=== PATIENT | female | born 1990 | race Two or more races ===

== ENCOUNTER 2018-12-08 05:00 | Emergency (ER) | payer MEDICAID ==
[~2018-12-08] VITALS: Ht 147.3 cm; Wt 77.1 kg
--- NOTE | 2018-12-08 05:28 | NUR ---
BIB SELF FROM HOME. AAOX4. NAD, BREATHING EVEN AND UNLABORED. AMBULATORY. C/O MULTIPLE RED, RAISE HIVES ON BLE SINCE SUNDAY. PT STATES THAT SHE HAS BEEN TO ER AND ON STEROIDS AND BENADRYL. HIVE STATED ON THE BODY WHICH IS NOT PRESENT AT THIS MOMENT AND STATES THAT IT MOVED DOWN TO HER LOWER EXTREMETIES. TO ER BED 1. MD AT BEDSIDE FOR EVAL. ORDERS RECEIVED.
[2018-12-08] MEDS ORDERED: diphenhydrAMINE HCL 50 MG CAPSULE PO ONE (05:30)
[2018-12-08] MEDS ORDERED: FAMOTIDINE (20 MG) 20 MG TABLET ONE (05:30)
[2018-12-08] MEDS ORDERED: FAMOTIDINE (20 MG) 20 MG TABLET PO ONE (05:30)
[2018-12-08] MEDS ORDERED: diphenhydrAMINE HCL 50 MG CAPSULE ONE (05:30)
[2018-12-08] MEDS ORDERED: predniSONE 20 MG TABLET PO ONE (05:30)
[2018-12-08] MEDS ORDERED: predniSONE 20 MG TABLET ONE (05:31)
[2018-12-08 05:48] VITALS: BP 123/74
--- NOTE | 2018-12-08 05:48 | NUR ---
Patient discharged to home in stable condition. Written and verbal after care instructions given. Patient verbalizes understanding of instruction. Pt ambulatory with a steady gait
== END 2018-12-08 05:49 | disposition home or self-care (01) ==
LOC: ER 05:00
DX: L50.9 Urticaria, unspecified (principal); Z98.890 Other specified postprocedural states; Z98.51 Tubal ligation status; Z90.89 Acquired absence of other organs
CPT/HCPCS: 99284; J7512; Q0163

== ENCOUNTER 2019-06-19 19:39 | Emergency (ER) | payer MEDICAID, OTHER ==
[~2019-06-19] VITALS: Ht 149.9 cm; Wt 81.6 kg
--- NOTE | 2019-06-19 20:07 | NUR ---
PT AMBULATED TO ER #4 WITH A STEADY GAIT. PT IS C/O A HEADACHE X 1 DAY AND IS EXPERIENCING PHOTOPHOBIA. 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 OVERHEAD LIGHTS HAVE BEEN TURNED OFF AND PT IS AWAITING EVAL BY .
--- NOTE | 2019-06-19 20:09 | NUR ---
URINE COLLECTED AND SENT TO LAB
--- NOTE | 2019-06-19 20:16 | NUR ---
DR LYONS IS AT THE BEDSIDE EVALUATING THE PT.
[2019-06-19] MEDS ORDERED: ACETAMINOPHEN ES 500 MG TABLET ONE (20:22)
[2019-06-19] MEDS ORDERED: IBUPROFEN 600 MG TABLET PO ONE ×2 (20:22→20:30)
[2019-06-19] MEDS ORDERED: ACETAMINOPHEN ES 500 MG TABLET PO ONE (20:30)
--- NOTE | 2019-06-19 20:36 | NUR ---
Patient discharged to home in stable condition. Written and verbal after care instructions given. Patient verbalizes understanding of instruction AND RX. PT AMBULATED OUT WITH A STEADY GAIT. VSS. NAD NOTED.
[2019-06-19 20:37] VITALS: BP 119/86
== END 2019-06-19 20:38 | disposition home or self-care (01) ==
LOC: ER 19:42
DX: J40 Bronchitis, not specified as acute or chronic (principal); G43.909 Migraine, unspecified, not intractable, without status migrainosus; Z98.890 Other specified postprocedural states; Z90.89 Acquired absence of other organs